=== PATIENT | female | born 1950 | race Caucasian/White ===

== ENCOUNTER → 2017-09-16 09:41 | Outpatient (CLI) | payer MEDICARE, OTHER, SELFPAY ==
--- NOTE | 2017-09-16 09:46 | MM_ITS ---
MM Dig screening mamm BI w/CAD CAD Screening ORDERING PHYSICIAN : Keara Patterson PATIENT AGE: 67 years GENDER: Female INDICATION: Routine screening mammogram. No hormones. No new complaints. Family history. Paternal grandmother with breast cancer postmenopausal COMPARISON . August 2015, December bilateral mammogram \ TECHNIQUE: Standard CC and MLO images were obtained. R2 CAD reviewed. FINDINGS: Moderately dense breast with similar pattern to previous studies. No no new dominant mass nor suspicious calcification.. CAD computer review highlights no areas of concern. RIGHT BREAST:No new findings of concern Minor asymmetric elements retroareolar region appear similar and stable to prior studies likely reflecting some mild ductal prominence here. Is similar to studies dating back to 2012 &/2011 LEFT BREAST:No significant change. Stable breast patterns IMPRESSION: ......... Stable bilateral mammogram no significant new findings. Follow-up in one year recommended. Moderately dense breasts.. BI-RADS Category: 2 Benign Finding(s) RECOMMENDED FOLLOW-UP: 1YR - 1 YEAR FOLLOW-UP (A letter has been sent to the patient regarding results of the study.)
--- NOTE | 2017-09-16 09:46 | XR_ITS ---
XR DEXA axial skeleton HISTORY: ITS.REASON: POST MENOPAUSAL ORDERING PHYSICIAN: Keara Patterson PATIENT AGE: 67 years FINDINGS: The BMD measured at the Right or left femoral neck is BMD g/cm squared with a T score of T score. This is considered Osteopenic according to the World Health Organization criteria. Fracture risk is Moderate. Treatment is advised. The L1 L4 density has a T score of -0.9. There is severe lumbar scoliosis convex left IMPRESSION: Osteopenia with moderate fracture risk. Treatment recommended. Suggest follow-up exam September 2019
== END ==
PROVIDERS: Family Provider Family Medicine; PCP Nurse Practitioner Family; Visit Provider Nurse Practitioner Family
DX: Z78.0 Asymptomatic menopausal state (principal); Z12.31 Encounter for screening mammogram for malignant neoplasm of breast
CPT/HCPCS: 77067; 77080

== ENCOUNTER → 2017-11-08 12:25 | Outpatient (CLI) | payer MEDICARE, OTHER, SELFPAY ==
--- NOTE | 2017-11-08 12:26 | XR_ITS ---
XR foot wt bearing RT 3V HISTORY: ITS.REASON: pain ORDERING PHYSICIAN: Maria Teresa Oro DPM PATIENT AGE: 67 years COMPARISON: None FINDINGS: There is mild hallux valgus with first metatarsophalangeal angle of 23 degrees with mild osteoarthritic changes of the first metatarsophalangeal joint. There is mild hypertrophic changes of the distal aspect of the first metatarsal. There is a small calcific density along the dorsal aspect of the first metatarsal tarsal joint. IMPRESSION: Mild hallux valgus with bunion formation at the distal first metatarsal
--- NOTE | 2017-11-08 12:26 | XR_ITS ---
XR foot wt bearing LT 3V HISTORY: ITS.REASON: pain ORDERING PHYSICIAN: Maria Teresa Oro DPM PATIENT AGE: 67 years COMPARISON: None FINDINGS: No fracture or dislocation. No lytic or blastic change. There is normal mineralization.. The joint spaces are well-preserved. No significant degenerative/arthritic changes. No erosive changes evident. Mild hypertrophic changes are present along the dorsal aspect of the first metatarsophalangeal junction and at the distal aspect of the first metatarsal IMPRESSION: Mild degenerative change, no acute finding
== END ==
PROVIDERS: Visit Provider Podiatrist
DX: M20.10 Hallux valgus (acquired), unspecified foot (principal); B35.1 Tinea unguium
CPT/HCPCS: 73630; 87102; 87206; 87220

== ENCOUNTER → 2019-06-12 09:18 | Outpatient (POV) | payer MEDICARE, OTHER, SELFPAY | PROVIDERS: Visit Provider Dermatology | DX: Z00.00 Encounter for general adult medical examination without abnormal findings (principal) ==

== ENCOUNTER → 2019-12-18 11:29 | Outpatient (POV) | payer MEDICARE, OTHER, SELFPAY | PROVIDERS: PCP Nurse Practitioner Family; Visit Provider Dermatology | DX: Z00.00 Encounter for general adult medical examination without abnormal findings (principal) ==

== ENCOUNTER → 2020-01-11 08:01 | Outpatient (CLI) | payer MEDICARE, OTHER, SELFPAY ==
--- NOTE | 2020-01-11 08:03 | MM_ITS ---
PROCEDURE: MM DIG SCREENING MAMM BI W/CAD Referring Doctor: Keara Patterson Patient Age:69Y CLINICAL INDICATION: SCREENING. 69-year-old. No hormones. No new complaints Family history a paternal grandmother with breast cancer postmenopausal COMPARISON: MG DMSB DIGITAL MAMM-SCREEN BILATERAL from 11/16/2011 MG DMSB DIG MAMM-SCREEN FLORENTINO from 12/19/2012 MG SCBI MM Dig screening mamm BI w/CAD from 09/16/2017 TECHNIQUE: Standard CC and MLO images were obtained. R2 CAD reviewed. Bilateral digital breast tomosynthesis included. Additional axillary CC views both breast included FINDINGS: moderate density breast with fibroglandular elements most evident anteriorly. Mild heterogeneous fibroglandular pattern. No new suspicious or dominant mass in either breast, no new areas of concern either breast, no suspicious calcifications. CAD computer assisted review highlights no areas of concern either breast. Left breast but stable small round density deep medial left breast on CC views noted 5.4 mm diameter.. Is unchanged since previous studies from 2017 and 2012 and can be followed safely Bilateral follow-up 1 year recommended IMPRESSION: Stable bilateral mammogram with no new areas of concern Moderate breast density Bilateral follow-up 1 year recommended BI-RAD Category: 2 Benign Finding(s) FOLLOW-UP: 1YR 1 Year Follow-up (A letter has been sent to the patient regarding results of the study.) Dictated by: El Moura MD 01/11/2020 11:20 El Moura MD in [place] 01/11/2020 11:20
== END ==
PROVIDERS: PCP Nurse Practitioner Family; Visit Provider Nurse Practitioner Family
DX: Z12.31 Encounter for screening mammogram for malignant neoplasm of breast (principal)
CPT/HCPCS: 77063; 77067

== ENCOUNTER → 2020-08-05 12:47 | Outpatient (POV) | payer MEDICARE, OTHER, SELFPAY | PROVIDERS: Visit Provider Dermatology | DX: Z00.00 Encounter for general adult medical examination without abnormal findings (principal) ==

== ENCOUNTER → 2020-09-25 12:22 | Outpatient (CLI) | payer MEDICARE, OTHER, SELFPAY ==
--- NOTE | 2020-09-25 12:26 | CA_ITS ---
APPROVED REPORT Ship Boss: ANA Laterality: Bilateral Study Quality: Excellent Indications: Screening Doppler Spectral Velocity Analysis ECA (R) 90.80/13.70 cm/s ECA (L) 73.70/10.30 cm/s dICA (R) 102.80/40.30 cm/s dICA (L) 90.80/36.00 cm/s Marisel (R) 73.70/27.40 cm/s Marisel (L) 84.00/33.40 cm/s pICA (R) 71.10/24.80 cm/s pICA (L) 94.20/34.30 cm/s dCCA (R) 112.30/31.00 cm/s dCCA (L) 94.20/27.40 cm/s pCCA (R) 135.80/35.30 cm/s mCCA (L) 125.10/36.80 cm/s Vert (R) 42.80/12.90 cm/s Vert (L) 32.60/15.40 cm/s ICA/CCA 0.92 ICA/CCA 1.00 Findings Duplex evaluation demonstrates stenosis of the right proximal internal carotid artery <20% with PSV <140 cm/sec, EDV <100 cm/sec, and IC/CC Ratio <4.0.Duplex evaluation demonstrates stenosis of the left proximal internal carotid artery <20% with PSV <140 cm/sec, EDV <100 cm/sec, and IC/CC Ratio <4.0. Duplex evaluation demonstrates antegrade flow of the bilateral Vertebral Arteries. Cardiac arrytthmia present throoughout exam. Incidental Thyroid nodules noted bilaterally. Conclusion Duplex evaluation demonstrates stenosis of the right proximal internal carotid artery <20% with PSV <140 cm/sec, EDV <100 cm/sec, and IC/CC Ratio <4.0.Duplex evaluation demonstrates stenosis of the left proximal internal carotid artery <20% with PSV <140 cm/sec, EDV <100 cm/sec, and IC/CC Ratio <4.0. Duplex evaluation demonstrates antegrade flow of the bilateral Vertebral Arteries. Cardiac arrytthmia present throoughout exam. Incidental Thyroid nodules noted bilaterally. Electronically signed by : Nadir Farmer MD 09/25/2020 15:28:46
--- NOTE | 2020-09-25 12:54 | XR_ITS ---
PROCEDURE: XR DEXA AXIAL SKELETON CLINICAL HISTORY: OSTEOPENIA COMPARISON: CR DEXAAX XR DEXA axial skeleton from 09/16/2017 FINDINGS: The right hip BMD is 0.652 with a T-score of -1.8. The left hip BMD is 0.647 with a T-score of -2.4. The lumbar spine BMD is 0.941 with a T-score of -1.0. Previously the lowest bone density was in the left femoral neck with T-score of -2.2 IMPRESSION: This patient is considered osteopenic according to the World Health Organization criteria. Bone density is between 10 and 25 percent below young normal. Fracture risk is moderate. Treatment is advised. Based on these results a follow-up exam is recommended in 2 year. Dictated by: Nadir Farmer MD 09/26/2020 11:22 Nadir Farmre MD in [place] 09/26/2020 11:22
== END ==
PROVIDERS: PCP Nurse Practitioner Family; Visit Provider Nurse Practitioner Family
DX: Z13.6 Encounter for screening for cardiovascular disorders (principal); M85.89 Other specified disorders of bone density and structure, multiple sites; R09.89 Other specified symptoms and signs involving the circulatory and respiratory systems
CPT/HCPCS: 77080; 93880

== ENCOUNTER → 2020-10-20 12:38 | Outpatient (CLI) | payer MEDICARE, OTHER, SELFPAY ==
--- NOTE | 2020-10-20 12:40 | US_ITS ---
PROCEDURE: US THYROID CLINICAL INDICATION: THYROID NODULE Thyroid nodule seen on recent carotid ultrasound COMPARISON: US CA CAROTID DUPLEX BI from 09/25/2020 FINDINGS: There are several tiny cysts in the right thyroid lobe. In addition there is a 1.5 centimeter solid nodule in the inferior right thyroid lobe which appears to be taller than long measuring 1.5 centimeters x 1.2 centimeters. No discrete calcifications are seen within this nodule. There is also a 8 millimeter solid nodule in the right thyroid lobe. In the left thyroid lobe there are several tiny cysts and a 8 millimeter solid nodule as well as a 1 centimeter complex nodule in the mid thyroid lobe and minimally complex cyst in the low lower lobe measuring 5 millimeters. Thyroid isthmus region is normal. No abnormal vascularity. Right thyroid lobe measures 4.1 x 2 x 1.5 cm and the left thyroid lobe 4 x 1.3 x 1.3 cm. IMPRESSION: 1.5 centimeter solid nodule in the inferior right thyroid lobe consistent with a TIRADS 4 lesion for which ultrasound-guided fine needle aspiration is recommended. 8 millimeter solid nodule in the right thyroid lobe consistent with a TIRADS 3 lesion. A few tiny cysts in both lobes. 1 centimeter complex nodule in the left mid thyroid lobe with minimally complex 5 millimeter cyst in the left lower thyroid lobe. Dictated by: Kenji Moody 10/20/2020 14:53 Kenji Moody in [place] 10/20/2020 14:53
== END ==
PROVIDERS: PCP Nurse Practitioner Family; Visit Provider Nurse Practitioner Family
DX: E04.1 Nontoxic single thyroid nodule (principal)
CPT/HCPCS: 76536

== ENCOUNTER → 2020-11-06 15:16 | Outpatient (CLI) | payer MEDICARE, OTHER, SELFPAY ==
[2020-11-06 16:47] LABS: Free T4 (Free Thyroxine) 0.78 ng/dl (0.78-2.19)
[2020-11-06 17:00] LABS: Thyroid Stimulating Hormone 2.02 uIU/mL (0.465-4.68)
[2020-11-08 09:00] LABS: Thyroid Peroxidase Antibodies <9 IU/mL (0-34)
[2020-11-11 23:45] LABS: Calcitonin <2.0 pg/mL (0.0-5.0); Thyroid Stimulating Immunoglob <0.10 IU/L (0.00-0.55)
== END ==
PROVIDERS: Visit Provider Otolaryngology
DX: E04.1 Nontoxic single thyroid nodule (principal); E04.9 Nontoxic goiter, unspecified
CPT/HCPCS: 36415; 82308; 84439; 84443; 84445; 86376

== ENCOUNTER → 2020-11-19 09:38 | Outpatient (CLI) | payer MEDICARE, OTHER, SELFPAY ==
--- NOTE | 2020-11-19 09:39 | US_ITS ---
PROCEDURE: US FNA THYROID x2 CLINICAL INDICATION: Right thyroid nodule COMPARISON: US US THYROID from 10/20/2020 TECHNIQUE: Two right thyroid nodules were biopsied with ultrasound guidance. Time-out procedure performed. Following obtaining informed consent, using aseptic technique and local anesthesia with buffered lidocaine, fine-needle aspiration was performed of the the mid and lower thyroid nodules of interest using sonographic guidance. 3 passes were made into the nodule with a 21 gauge needle. Specimen was given to cytology. The patient tolerated the procedure well without evidence of immediate complications and left the ultrasound suite in stable condition. FINDINGS: Cytology of the mid thyroid nodule: Negative for malignancy. Cytology lower thyroid nodule: Negative for malignancy IMPRESSION: Uneventful ultrasound-guided FNA two right thyroid nodules both negative for malignancy. Dictated by: Nadir Farmer MD 11/22/2020 10:57 Nadir Farmer MD in [place] 11/22/2020 10:57
== END ==
PROVIDERS: PCP Nurse Practitioner Family; Visit Provider Otolaryngology
DX: E04.9 Nontoxic goiter, unspecified (principal)
CPT/HCPCS: 10005; 76536; 88173

== ENCOUNTER 2020-11-22 10:18 | Emergency (ER) | payer MEDICARE, OTHER, SELFPAY ==
[2020-11-22 10:39] VITALS: BP 136/76; PULSE 87; RESP 20; TEMP 36.9; O2SAT 98; BMI 22.3
--- NOTE | 2020-11-22 10:47 | HMH.EDUTC ---
[facility] [place]ression: Contact dermatitis Qualifiers: Contact dermatitis type: allergic Contact dermatitis trigger: other trigger Qualified Code(s): L23.89 - Allergic contact dermatitis due to other agents Disposition: Home, Self-Care Condition on Discharge: Good Instructions: DI for Contact Dermatitis Additional Instructions: apply cream if symptoms worsen return or be seen in ed follow up with dr huerta do not scratch Prescriptions: Triamcinolone Acetonide 15 gm TP BID 5 Days #1 cream..g. Transmission Status: Pending to [id number] Referrals: Keara Patterson APRN [Primary Care Provider] - Time of Disposition: 11:02 Medical Decision Making - Dixon Inquiry Pt receiving controlled substance: No Vital Signs: 11/22/20 10:39 Temperature 98.5 F Temperature Source Oral Pulse Rate [Left] 87 Respiratory Rate 20 Blood Pressure [Right Arm] 136/76 Blood Pressure Mean [Right Arm] 96 02 Sat by Pulse Oximetry 98 [facility] [place] - General Chief complaint: [facility] Stated complaint: rash on neck Time Seen by Provider: 11/22/20 10:48 Mode of Arrival: Ambulatory Source of Information: Patient Limitations: No Limitations Description of Symptoms (Recalled from Triage Doc. by RN): pt c/o a rash on the front of her neck. she had a biopsy done and the area of the rash is only where they cleaned her for the procedure. HEENT Symptoms (Recalled from RN notes): No Resp Symptoms (Recalled from RN notes): No Skin Symptoms (Recalled from RN notes): Yes (rash on throat) MS Symptoms (Recalled from RN notes): No Functional Status (Recalled from RN notes): na - History of Present Illness Provider Complaint: 70 yr old presents for rash on neck. pt c/o a rash on the front of her neck. she had a biopsy done on and the area of the rash is only where they cleaned her for the procedure. - Related Data Home Medications Medication Instructions Recorded Confirmed Calcium Carbonate/Vitamin D3 1 each PO BID 11/18/17 11/06/20 [Calcium 600 + Vit D 400 Softgl] psyllium seed (sugar) oral powder 1 tbsp PO DAILY 04/11/18 11/06/20 ibandronate 150 mg tablet 150 mg PO tab 11/06/20 11/06/20 Previous Rx's Medication Instructions Recorded Triamcinolone Acetonide 15 gm TP BID 5 Days #1 cream..g. 11/22/20 Allergies Allergy/AdvReac Type Severity Reaction Status Date / Time penicillamine Allergy Unknown Verified 11/06/20 14:59 - Worker's Comp Is this a Worker's Comp case?: No [facility] History - Hepatitis A Screen Drug use history?: No High risk sexual behaviors?: No History of sexually transmitted infection?: No Currently employed?: No Childcare worker?: No Do you have indoor plumbing?: Yes Do you have electricity?: Yes Attestation statement:: This patient has been screened for Hepatitis A risk factors. I have reviewed the patient's past medical history: Yes Medical History: Denies:: Diabetes Mellitus Type 1, Diabetes Mellitus Type 2, Internal Pacemaker, Lung Disease, Seizures Other Medical History: Reports: Other Comment: Chicken Pox, osteoporosis Other Surgeries: Yes: Colonoscopy, Dilation and Curettage, Other. No: Pacemaker Amputation: No Fractures: No Comment: Cyst removed from right ovary 1982. lesion removed from right hand. - Social History Smoking Status: Never smoker Alcohol Intake: never Alcohol Intake Frequency:: other Occupational Status: retired Family Hx:: Cancer Comment: cyst removed from right ovary ROS Obtained: Yes Systems reviewed as appropriate & no additional complaints - Constitutional Constitutional: Reports system reviewed and no additional complaints, except as docu, Denies fever(s) - Eyes Eyes: Reports system reviewed and no additional complaints, except as docu, Denies itchy eyes - ENT Ears, Nose, Mouth, and Throat: Reports system reviewed and no additional complaints, except as docu, Denies bleeding gums - Cardiovascular Cardiovascula
[2020-11-22 11:28] VITALS: BP 130/74; PULSE 84; RESP 20; TEMP 36.9
== END 2020-11-22 11:28 | disposition home or self-care (01) ==
PROVIDERS: Emergency Provider Nurse Practitioner Family; PCP Nurse Practitioner Family
DX: L23.89 Allergic contact dermatitis due to other agents (principal)
CPT/HCPCS: G0463; 99202

== ENCOUNTER → 2021-01-20 11:05 | Outpatient (POV) | payer MEDICARE, OTHER, SELFPAY | PROVIDERS: Visit Provider Dermatology | DX: Z00.00 Encounter for general adult medical examination without abnormal findings (principal) ==

== ENCOUNTER → 2021-01-22 15:39 | Outpatient (CLI) | payer MEDICARE, OTHER, SELFPAY ==
--- NOTE | 2021-01-22 15:42 | MM_ITS ---
PROCEDURE: MM DIG SCREENING MAMM BI W/CAD Digital Breast Tomosynthesis Included CLINICAL INDICATION: SCREENING COMPARISON: MG DMSB DIG MAMM-SCREEN [place] from 12/19/2012 MG SCBI MM Dig screening mamm BI w/CAD from 09/16/2017 MG MM DIG SCREENING MAMM BI W/CAD from 01/11/2020 TECHNIQUE: Standard CC and MLO images and 3D Tomosynthesis was obtained. R2 CAD reviewed. FINDINGS: The breasts are heterogeneously dense which may obscure small masses.. Asymmetric density consistent with fibroglandular tissue is present in the retroareolar region. This is unchanged. In the right breast there is a nodular 4 mm density in the inferior aspect of the right breast and 1 in the posterior inferior aspect of the right breast at 4 mm. In the left breast a 5 mm nodular opacity is present inferiorly as well as a nodular opacity in the superior left breast at 6 mm and 1 in the deep retroareolar region at 6 mm. Recommend spot compression views and bilateral breast ultrasound. These are not well delineated on the CC views. IMPRESSION: New bilateral nodular opacities. Suggest spot compression views rolled views and straight mL along with bilateral breast ultrasound BI-RAD Category: 0 Need Additional Imaging Evaluation FOLLOW-UP: IMM Immediate Follow-up Recommended (A letter has been sent to the patient regarding results of the study.) Dictated by: Nadir Farmer MD 02/09/2021 11:14 Nadir Farmer MD in [place] 02/09/2021 11:14
== END ==
PROVIDERS: PCP Nurse Practitioner Family; Visit Provider Nurse Practitioner Family
DX: Z12.31 Encounter for screening mammogram for malignant neoplasm of breast (principal)
CPT/HCPCS: 77063; 77067

== ENCOUNTER → 2021-02-17 08:50 | Outpatient (POV) | payer MEDICARE, OTHER, SELFPAY | PROVIDERS: Visit Provider Internal Medicine Nephrology | DX: Z00.00 Encounter for general adult medical examination without abnormal findings (principal) ==

== ENCOUNTER → 2021-02-27 13:39 | Outpatient (CLI) | payer MEDICARE, OTHER, SELFPAY ==
--- NOTE | 2021-02-27 13:41 | US_ITS ---
PROCEDURE: MM DIG MAMM BI DX W/CAD Digital Breast Tomosynthesis Included The CLINICAL INDICATION: ABN MAMM COMPARISON: MG SCBI MM Dig screening mamm BI w/CAD from 09/16/2017 MG MM DIG SCREENING MAMM BI W/CAD from 01/11/2020 MG MM DIG SCREENING MAMM BI W/CAD from 01/22/2021 US US BREAST LT COMPLETE from 02/27/2021 US US BREAST RT COMPLETE from 02/27/2021 TECHNIQUE: Standard CC and MLO images and 3D Tomosynthesis was obtained. R2 CAD reviewed. FINDINGS: Right breast: The small focal opacity in the inferior right breast appears to compress out as fibroglandular tissue.. Rolled views do not confirm persistent nodule. Right breast ultrasound: At 6 o'clock the nipple there is a 10 x 3 mm hypoechoic nodule somewhat irregular margins suggesting a complicated cyst or dilated duct. At 11 o'clock near the nipple there is an additional hypoechoic nodule may represent asymmetric fibroglandular tissue. Left breast: 2 nodules are present in the inferior medial aspect of the left breast measuring 4 and 3 mm. These do contain some coarse calcifications. No suspicious nodules evident. Left breast ultrasound: 5 mm cyst 9 o'clock near the nipple. No suspicious nodules evident. IMPRESSION: The probably benign findings. No convincing evidence of malignancy. Recommend bilateral 6 month mammographic and sonographic follow-up. BI-RAD Category: 3 Probably Benign Finding Short Term Follow-Up FOLLOW-UP: 6M 6 Month Follow-up (A letter has been sent to the patient regarding results of the study.) Dictated by: Nadir Farmer MD 02/27/2021 18:57 Nadir Farmer MD in [place] 02/27/2021 18:57
== END ==
PROVIDERS: PCP Nurse Practitioner Family; Visit Provider Nurse Practitioner Family
DX: R92.8 Other abnormal and inconclusive findings on diagnostic imaging of breast (principal)
CPT/HCPCS: 76641; 77062; 77066; G0279

== ENCOUNTER → 2021-07-21 08:58 | Outpatient (POV) | payer MEDICARE, OTHER, SELFPAY | PROVIDERS: Visit Provider Dermatology | DX: Z00.00 Encounter for general adult medical examination without abnormal findings (principal) ==

== ENCOUNTER → 2021-10-01 13:13 | Outpatient (CLI) | payer MEDICARE, OTHER, SELFPAY ==
--- NOTE | 2021-10-01 13:17 | MM_ITS ---
PROCEDURE INFORMATION: Exam: US Right Breast, Complete US Left Breast, Complete MG Bilateral Diagnostic Breast Tomosynthesis Exam date and time: 10/01/2021 1:48 PM Age: 71 years old Clinical indication: Short-term sonographic follow-up for bilateral breast masses TECHNIQUE: Imaging protocol: Complete ultrasound of all four quadrants of the Right breast and the retroareolar regions, including ultrasound of the axilla when performed. Complete ultrasound of all four quadrants of the Left breast and the retroareolar regions, including ultrasound of the axilla when performed. Bilateral Diagnostic tomosynthesis and 2D mammography including computer-aided detection (CAD) when performed. Unilateral or bilateral exam. COMPARISON: 1. MG MM DIG MAMM BI DX W/CAD 02/27/2021 1:51 PM 2. MG MM DIG SCREENING MAMM BI W/CAD 01/22/2021 3:41 PM FINDINGS: MAMMOGRAPHY: The breast tissue is composed of scattered areas of fibroglandular density. There is no stellate mass, architectural distortion or suspicious microcalcifications in either breast to suggest malignancy. No skin thickening or axillary adenopathy. ULTRASOUND: Sonographic images of both breasts including the retroareolar regions, all 4 quadrants and the axilla demonstrates minimal subcentimeter cystic change in the left breast. Two previously noted lower inner quadrant indeterminate subcentimeter masses on prior left breast ultrasound are not reproducible on the current examination. In the right 6 o'clock axis 3 cm from the nipple is a stable focus of hypoechogenic tissue measuring 0.9 x 0.5 cm. Focal fat lobule or discrete solid mass in the right 11 o'clock axis 3 cm from the nipple is also stable finding measuring 0.8 x 0.7 x 0.2 cm. . No architectural distortion or acoustical shadowing. No skin thickening or axillary adenopathy. IMPRESSION: 1. Stable sonographically visible right breast masses compared to prior ultrasound dated 02/27/2021. A six-month follow-up targeted right breast ultrasound is recommended for continued close surveillance. Benign cystic change in the left breast. 2. Bilateral annual mammographic screening is recommended at the time of right breast follow-up in February 2021. ASSESSMENT: BI-RADS Category 3: Probably benign
== END ==
PROVIDERS: PCP Nurse Practitioner Family; Visit Provider Nurse Practitioner Family
DX: R92.8 Other abnormal and inconclusive findings on diagnostic imaging of breast (principal)
CPT/HCPCS: 76641; 77062; 77066; G0279

== ENCOUNTER 2021-10-21 10:53 | Emergency (ER) | payer MEDICARE, OTHER, SELFPAY ==
[2021-10-21 11:10] VITALS: BP 121/84; PULSE 83; RESP 17; TEMP 36.9; O2SAT 97; BMI 23.5
--- NOTE | 2021-10-21 11:38 | HMH.EDUTC ---
[facility] [place] Clinical Impression: Dermatitis Disposition: Home, Self-Care Condition on Discharge: Good Instructions: Summertime Rashes: Poison Nadine, Marston, and [place], Poison Nadine, Poison Marston, Poison [place], DI for Poison Nadine Allergy, Prednisone Additional Instructions: Over the counter Calamine lotion may help with itching and rash Oatmeal bathes may help to soothe the skin and help with itching and irritation of the rash Over the counter Benadryl may help with itching Return if needed Start over the counter Prednisone tomorrow Return if needed Straight to ER if any life threatening symptoms Follow up with your Family Doctor if needed Prescriptions: predniSONE [Prednisone 5mg Tab Dose-Pack] 5 mg PO UD DOSE PK 6 Days #21 tab Transmission Status: Pending to [id number] Referrals: Keara Patterson APRN [Primary Care Provider] - As needed Time of Disposition: 12:05 Medical Decision Making - Dixon Inquiry Pt receiving controlled substance: No Dixon was queried for this patient: No Vital Signs: 10/21/21 11:10 10/21/21 11:54 Temperature 98.4 F 98.4 F Temperature Source Oral Pulse Rate 83 Pulse Rate [Right Brachial] 83 Respiratory Rate 17 17 Blood Pressure 121/84 Blood Pressure [Right Arm] 121/84 Blood Pressure Mean [Right Arm] 96 Blood Pressure Source [Right Arm] Automatic Cuff Blood Pressure Position [Right Arm] Sitting 02 Sat by Pulse Oximetry 97 Oxygen Delivery Method Room Air Orders (Tests/Meds): ED MEDICATIONS Discontinued Medications Generic Name Dose Route Start Last Admin Trade Name Freq PRN Reason Stop Dose Admin Methylprednisolone Sodium Succinate 125 mg 10/21/21 11:45 10/21/21 11:50 Methylprednisolone Sod Succ 125mg Vial IM 10/21/21 11:46 125 mg ONCE ONE Administration [facility] [place] - General Stated complaint: rash Time Seen by Provider: 10/21/21 11:44 Mode of Arrival: Ambulatory Source of Information: Patient Limitations: No Limitations Description of Symptoms (Recalled from Triage Doc. by RN): PATIENT C/O RASH TO FACE, ARMS AND HANDS SINCE TUESDAY HEENT Symptoms (Recalled from RN notes): No Resp Symptoms (Recalled from RN notes): No Skin Symptoms (Recalled from RN notes): Yes MS Symptoms (Recalled from RN notes): No Functional Status (Recalled from RN notes): WNL - History of Present Illness Provider Complaint: Patient statse that they was moving weeds and a small tree that they cut down on Tuesday and not sure if she may have got into poison nadine or be having a reaction to the tree but she is broke out in blister like rash on both forearms and on her neck and chin States that today it was itching worse and seemed to be spreading so she came in - Related Data Home Medications Medication Instructions Recorded Confirmed Calcium Carbonate/Vitamin D3 1 each PO BID 11/18/17 06/25/21 [Calcium 600 + Vit D 400 Softgl] psyllium seed (sugar) oral powder 1 tbsp PO DAILY 04/11/18 06/25/21 ibandronate 150 mg tablet 150 mg PO tab 11/06/20 06/25/21 Previous Rx's Medication Instructions Recorded Triamcinolone Acetonide 15 gm TP BID 5 Days #1 cream..g. 11/22/20 predniSONE [Prednisone 5mg Tab 5 mg PO UD DOSE PK 6 Days #21 tab 10/21/21 Dose-Pack] Allergies Allergy/AdvReac Type Severity Reaction Status Date / Time penicillamine Allergy Unknown Verified 06/25/21 13:14 - Worker's Comp Is this a Worker's Comp case?: No [facility] History - Hepatitis A Screen Attestation statement:: This patient has been screened for Hepatitis A risk factors. I have reviewed the patient's past medical history: Yes Medical History: Denies:: Diabetes Mellitus Type 1, Diabetes Mellitus Type 2, Internal Pacemaker, Lung Disease, Seizures Other Medical History: Reports: Other Comment: Chicken Pox, osteoporosis Other Surgeries: Yes: Colonoscopy, Dilation and Curettage, Other. No: Pacemaker Amputation: No Fractures: No Comment: Cyst removed from right ovary 1982
[2021-10-21 11:54] VITALS: BP 121/84; PULSE 83; RESP 17; TEMP 36.9; O2SAT 97
== END 2021-10-21 12:08 | disposition home or self-care (01) ==
PROVIDERS: Emergency Provider Nurse Practitioner; PCP Nurse Practitioner Family
DX: L25.9 Unspecified contact dermatitis, unspecified cause (principal)
CPT/HCPCS: 96372; 99212; G0463

== ENCOUNTER → 2021-12-01 13:53 | Outpatient (CLI) | payer MEDICARE, OTHER, SELFPAY ==
--- NOTE | 2021-12-01 14:13 | US_ITS ---
FINAL REPORT TECHNIQUE: Sonographic images of the thyroid gland were obtained in the longitudinal and transverse planes. CLINICAL HISTORY: hx nodule COMPARISON: 10/20/2020 FINDINGS: The right lobe measures 1.5 x 3.9 x 1.9 cm. The left lobe measures 1.5 x 3.9 x 1.5 cm. The isthmus is normal. There are multiple right thyroid nodules. There is an isoechoic nodule in the posterior right thyroid lobe measuring 1.5 cm, was 1.4 cm. This is unchanged since the previous. There is a 2nd isoechoic nodule measuring 8 mm, also unchanged. There is a 3rd nodule in the lower pole of the right thyroid measure 1.1 cm, unchanged. Several tiny colloid cysts are identified. The left lobe of the thyroid demonstrates multiple nodules and colloid cysts. In the upper pole of the left thyroid lobe is a hypoechoic nodule measuring 6 mm, stable. There is also an 8 mm isoechoic nodule which may have been partially cystic on the prior exam. In addition, there is a stable 8 mm nodule in the lower pole. IMPRESSION: Stable right thyroid lobe nodules. One of the left thyroid nodules appears less cystic and more solid than previous but measures less than 1 cm. No current recommendations regarding follow-up, favor multinodular goiter. Reviewed, Interpreted and Dictated by Danni Ramírez MD Transcribed by Amy Rutledge Authenticated and [facility]
[2021-12-01 15:24] LABS: Thyroid Stimulating Hormone 1.95 uIU/mL (0.465-4.68)
== END ==
PROVIDERS: PCP Nurse Practitioner Family; Visit Provider Otolaryngology
DX: E04.1 Nontoxic single thyroid nodule (principal)
CPT/HCPCS: 36415; 76536; 84443

== ENCOUNTER → 2022-01-26 13:12 | Outpatient (POV) | payer MEDICARE, OTHER, SELFPAY | PROVIDERS: Visit Provider Dermatology | DX: Z00.00 Encounter for general adult medical examination without abnormal findings (principal) ==

== ENCOUNTER → 2022-02-13 10:28 | Outpatient (CLI) | payer MEDICARE, OTHER, SELFPAY | PROVIDERS: PCP Nurse Practitioner Family; Visit Provider Ophthalmology | DX: U07.1 COVID-19 (principal) | CPT/HCPCS: C9803; U0003; U0005 ==

== ENCOUNTER 2022-03-16 08:49 | Day surgery (SDC) | payer MEDICARE, OTHER, SELFPAY ==
[2022-03-16] VITALS (7 sets, daily range): BP systolic 115–146; BP diastolic 63–76; PULSE 68–73; RESP 16–18; TEMP 36.2–37.1; O2SAT 98–100; BMI 23.1
== END 2022-03-16 11:01 | disposition home or self-care (01) ==
LOC: OR 08:50
PROVIDERS: PCP Nurse Practitioner Family; Visit Provider Ophthalmology
DX: H25.811 Combined forms of age-related cataract, right eye (principal)
CPT/HCPCS: 66984; V2632

== ENCOUNTER 2022-03-30 08:24 | Day surgery (SDC) | payer MEDICARE, OTHER, SELFPAY ==
[2022-03-26 11:39] VITALS: BMI 23.0
[2022-03-30] VITALS (7 sets, daily range): BP systolic 113–123; BP diastolic 54–69; PULSE 63–76; RESP 16–18; TEMP 36.4–36.6; O2SAT 99–100
== END 2022-03-30 10:58 | disposition home or self-care (01) ==
PROVIDERS: PCP Nurse Practitioner Family; Visit Provider Ophthalmology
DX: H25.812 Combined forms of age-related cataract, left eye (principal)
CPT/HCPCS: 66984; V2632

== ENCOUNTER → 2022-04-13 10:52 | Outpatient (POV) | payer MEDICARE, OTHER, SELFPAY | PROVIDERS: Visit Provider Dermatology | DX: Z00.00 Encounter for general adult medical examination without abnormal findings (principal) ==

== ENCOUNTER → 2022-05-07 13:36 | Outpatient (CLI) | payer MEDICARE, OTHER, SELFPAY ==
--- NOTE | 2022-05-07 14:15 | MM_ITS ---
PROCEDURE INFORMATION: Exam: US Left Breast, Complete US Right Breast, Complete MG Bilateral Diagnostic Breast Tomosynthesis Exam date and time: 05/07/2022 3:09 PM Age: 71 years old Clinical indication: Six month follow-up right sonographic breast masses in 02/27/2021 and 10/01/2021. Screening. No reported family history of breast cancer. TECHNIQUE: Imaging protocol: Complete ultrasound of all four quadrants of the Left breast and the retroareolar regions, including ultrasound of the axilla when performed. Complete ultrasound of all four quadrants of the Right breast and the retroareolar regions, including ultrasound of the axilla when performed. Bilateral Diagnostic tomosynthesis and 2D mammography including computer-aided detection (CAD) when performed. Unilateral or bilateral exam. COMPARISON: US BREAST LT COMPLETE 10/01/2021 2:40 PM FINDINGS: MAMMOGRAPHY: Breast composition: There are scattered areas of fibroglandular density. Mass: No suspicious mass. Architectural distortion: None. Calcifications: No suspicious calcifications. Asymmetric density: None. Skin thickening: None. Axillary adenopathy: None. ULTRASOUND: Bilateral sonography, all 4 quadrants, retroareolar and axilla. On the right, at 6 o'clock 3 cm from the nipple, probable complicated cyst measuring 0.4 by 0.9 x 0.3 cm which measured 1.0 x 0.3 x 0.7 cm on 02/27/2021; and at 11 o'clock 3 cm from the nipple, oval hypoechoic mass or island of tissue measuring 0.8 by 0.9 x 0.2 cm which measured 0.8 x 0.3 by 0.6 cm on 02/27/2021. Sonographically unremarkable right axillary lymph node. On the left, at 6 o'clock 2 cm from the nipple, probable complicated cyst measuring 0.4 x 0.2 by 0.4 cm which measured 0.3 x 0.3 by 0.3 cm on 10/01/2021, not demonstrated 02/27/2021. Sonographically unremarkable left axillary lymph node. IMPRESSION: Probably benign cystic changes on the right at 6 and 11 o'clock and on the left 6 o'clock, suggest six-month targeted sonography unless otherwise clinically indicated. No mammographic evidence of malignancy. ASSESSMENT: BI-RADS Category 3: Probably benign
== END ==
PROVIDERS: PCP Nurse Practitioner Family; Visit Provider Nurse Practitioner Family
DX: R92.8 Other abnormal and inconclusive findings on diagnostic imaging of breast (principal)
CPT/HCPCS: 76641; 77062; 77066; G0279

== ENCOUNTER → 2022-10-12 12:44 | Outpatient (CLI) | payer MEDICARE, OTHER, SELFPAY ==
--- NOTE | 2022-10-12 12:50 | US_ITS ---
FINAL REPORT CLINICAL HISTORY: thyroid nodule COMPARISON: October 2020 FINDINGS: THYROID ULTRASOUND Thyroid gland is normal size. The parenchyma shows normal echogenicity. Multiple thyroid nodules. A posterior right thyroid nodule measures up to 16 mm and previously measured 15 mm. There are some punctate calcifications associated with this nodule. There is an isoechoic right thyroid nodule measuring up to 12 mm that previously measured 11 mm. There are multiple subcentimeter left thyroid nodules. There is an exophytic isoechoic left thyroid nodule measuring up to 21 mm that was done on the prior exam. Overall the left lobe nodules appear more numerous than on the prior exam. IMPRESSION: Multinodular goiter with mild progression compatible with TI-RADS 4. Recommend continued 12-month follow-up. Reviewed, Interpreted and Dictated by Sharla Mejias MD Transcribed by Rachid Cotter Authenticated and [facility]
== END ==
PROVIDERS: PCP Nurse Practitioner Family; Visit Provider Otolaryngology
DX: E04.1 Nontoxic single thyroid nodule (principal)
CPT/HCPCS: 76536

== ENCOUNTER → 2022-10-26 08:59 | Outpatient (CLI) | payer MEDICARE, OTHER, SELFPAY ==
--- NOTE | 2022-10-26 09:07 | XR_ITS ---
FINAL REPORT TECHNIQUE: Bone densitometry calculations of the lumbar spine and left hip were obtained. CLINICAL HISTORY: osteopenia FINDINGS: Using L1-4, the bone mineral density of the spine is 0.985 g/cm2, corresponding to T-score of -0.6 but this may be falsely elevated secondary to hypertrophic changes. Using the left hip, the bone mineral density of the femoral neck is 0.605 g/cm2, corresponding to a T-score of -2.2. Using the right hip, the bone mineral density of the femoral neck is 0.686 g/cm2, corresponding to a T-score of -1.6. NOTE: T-score: Standard deviation compared with peak bone mass of young adult mean. *Following the recommendations of the International Society of Bone densitometry, classification of hip BMD is based on the lower of two T-scores; total hip or femoral neck. IMPRESSION: Diminished bone mineral density of the hips consistent with osteopenia. Normal bone mineral density of the lumbar spine but this may be falsely elevated secondary to hypertrophic changes. FRAX data reports major osteoporotic fracture of 12% and hip fracture of 2.6%. Reviewed, Interpreted and Dictated by Curtis Iglesias MD Transcribed by Amy Rutledge Authenticated and [facility]
== END ==
PROVIDERS: PCP Nurse Practitioner Family; Visit Provider Nurse Practitioner Family
DX: M85.89 Other specified disorders of bone density and structure, multiple sites (principal)
CPT/HCPCS: 77080

== ENCOUNTER → 2022-11-12 13:45 | Outpatient (CLI) | payer MEDICARE, OTHER, SELFPAY ==
--- NOTE | 2022-11-12 13:50 | US_ITS ---
PROCEDURE INFORMATION: Exam: US Right Breast, Complete US Left Breast, Complete Exam date and time: 11/12/2022 2:16 PM Age: 72 years old Clinical indication: Short-term radiographic follow-up for probable cystic change TECHNIQUE: Imaging protocol: Complete ultrasound of all four quadrants of the right breast and the retroareolar regions, including ultrasound of the axilla when performed. Complete ultrasound of all four quadrants of the left breast and the retroareolar regions, including ultrasound of the axilla when performed. COMPARISON: US BREAST RT COMPLETE 05/07/2022 2:45 PM FINDINGS: Breast: Sonographic images of both breasts including the retroareolar regions, all 4 quadrants and the axilla do not demonstrate any solid masses. Minimal subcentimeter cystic change is present bilaterally. No architectural distortion or acoustical shadowing. No skin thickening or axillary adenopathy. IMPRESSION: No sonographic evidence of malignancy. Annual screening is recommended in April 2023 unless otherwise clinically indicated. ASSESSMENT: BI-RADS Category 2: Benign
== END ==
LOC: RAD 13:46
PROVIDERS: PCP Nurse Practitioner Family; Visit Provider Nurse Practitioner Family
DX: R92.8 Other abnormal and inconclusive findings on diagnostic imaging of breast (principal); N60.01 Solitary cyst of right breast; N60.02 Solitary cyst of left breast
CPT/HCPCS: 76641

== ENCOUNTER 2023-01-06 10:10 | Day surgery (SDC) | payer MEDICARE, OTHER, SELFPAY ==
[2022-12-16 11:42] VITALS: BMI 22.6
[2023-01-06 10:29] VITALS: BP 140/64; PULSE 88; RESP 18; TEMP 36.5; O2SAT 98
--- NOTE | 2023-01-06 10:43 | EXP.ANES.CKL ---
[facility] Disclaimer: The information contained in this section may have been updated after the patient was seen, as this information can be updated by other users. Medical History Anxiety Depression H/O thyroid nodule History of cataract History of COVID-19 Thyroid Nodule Surgical History History of cataract surgery History of surgery GROWTH REMOVED ON RIGHT HAND AND LEFT SHOULDER Hx of dilation and curettage Hx of sinus surgery Family History Grandmother Breast cancer Mother Cancer Father Family history of cardiomyopathy Social History Smoking Status: Never smoker alcohol intake: never substance use type: denies use current occupational status: retired Travel in the last 8 weeks: None household members: none housing: house lives independently: No marital status: single education level: college service: No mcfp: No caffeine: Yes do you feel safe at home: Yes victim of physical abuse: No victim of emotional abuse: No victim of sexual abuse: No would you like helpful sources: No [facility] Anesthesia Checklist Patient Identification Patient Identification: Arm Band and Verbal (Name & ) Structural Data Admitted From: Home Planned Operative Procedure/s: colonoscopy Consent for Planned Operative Procedure(s) Verified: Yes Verified Documents: Surgical Consent NPO Status Verified Time NPO: 00:00 Additional verifications Anesthesia Reactions: No Previous Colonoscopy: Yes Airway Assessment Mallampati Score:: Class I C-Spine Mobility Assessed: Yes TMJ Mobility Assessed: Yes Dentition: Good Dentition Neurological Assessment Level of Consciousness: Awake and Alert Hx Seizures: No Anesthesia Plan Anesthesia Risk discussed: Yes ASA Class: I Anesthesia Type: IV sedation
[2023-01-06 11:00] VITALS: O2SAT 98
--- NOTE | 2023-01-06 11:24 | HMH.SCOPE ---
Procedure: Date: 01/06/23 Patient Date of :: 1950 Procedure Performed:: screening colonoscopy Indications:: Personal history of polyps Performing Provider:: Ayesha Hugo MD Referring Provider:: Keara Burton APRN Sedation:: Propofol Procedure:: After placing the patient in the left lateral decubitus position, the colonoscopy was gently inserted into the rectum and under direct visualization advanced to the cecum which was identified by transillumination in the right lower quadrant, identification of the ileocecal valve, appendiceal orifice, and cecal strap. Color, texture, mucosa, and anatomy of the colon were carefully examined with the scope. Findings:: Anal canal: normal Rectum: normal Sigmoid colon: normal without polyps or inflammatory changes, scattered diverticulosis noted Descending colon: normal without polyps or inflammatory changes Splenic flexure: normal Transverse colon: normal without polyps or inflammatory changes Hepatic flexure: normal Ascending colon: normal without polyps or inflammatory changes Cecum: normal Terminal ileum: not visualized Impression: Sigmoid diverticulosis otherwise normal colonoscopy Recommendations:: Follow up examination in about FIVE years or so, sooner if clinically indicated in view of history of polyps. Complications:: None Estimated blood obtained (mL): 0 Colonoscopy Component Colonoscopy Component Was a colonoscopy performed during today's procedure?: Yes Recommended follow up colonoscopy of at least 10 years?: No If no, follow up colonoscopy recommended in ___ years?: FIVE Reason for not recommending >/= 10 yr follow-up interval?: As noted above in report
[2023-01-06 11:25] VITALS: BP 104/54; PULSE 70; RESP 15; TEMP 36.8; O2SAT 99
[2023-01-06 11:35] VITALS: BP 116/61; PULSE 71; RESP 17; O2SAT 99
[2023-01-06 11:45] VITALS: BP 116/61; PULSE 67; RESP 16; O2SAT 99
[2023-01-06 11:55] VITALS: BP 126/73; PULSE 80; RESP 17; O2SAT 100
== END 2023-01-06 12:05 | disposition home or self-care (01) ==
PROVIDERS: PCP Nurse Practitioner Family; Visit Provider Internal Medicine Gastroenterology
PROC: 0DJD8ZZ Inspection of Lower Intestinal Tract, Via Natural or Artificial Opening Endoscopic (ICD-10-PCS; CPT 45378; principal; 2023-01-06 11:30)
DX: Z12.11 Encounter for screening for malignant neoplasm of colon (principal); Z86.010 Personal history of colon polyps; K57.30 Diverticulosis of large intestine without perforation or abscess without bleeding
CPT/HCPCS: G0105

== ENCOUNTER → 2023-04-04 13:02 | Outpatient (CLI) | payer MEDICARE, OTHER, SELFPAY ==
--- NOTE | 2023-04-04 13:02 | US_ITS ---
FINAL REPORT CLINICAL HISTORY: Decreased Pulses bilaterally. COMPARISON: None FINDINGS: LOWER EXTREMITY SEGMENTAL PRESSURE MEASUREMENTS FINDINGS: Pressure indices are as follows: RIGHT LOWER EXTREMITY: Thigh: 1.06 Calf: 1.10 Ankle, posterior tibial artery: 1.14 Ankle, dorsalis pedis: 1.10 Toe: 0.79 Comments: Normal LEFT LOWER EXTREMITY: Thigh: 1.06 Calf: 1.04 Ankle, posterior tibial artery: 1.02 Ankle, dorsalis pedis: 0.93 Toe: 0.70 Comments: Normal IMPRESSION: Normal segmental pressures. Reviewed, Interpreted and Dictated by Sharla Mejias MD Transcribed by Adela Ruffin Authenticated and [facility]
== END ==
PROVIDERS: PCP Nurse Practitioner Family; Visit Provider Nurse Practitioner Family
DX: R09.89 Other specified symptoms and signs involving the circulatory and respiratory systems (principal)
CPT/HCPCS: 93923

== ENCOUNTER → 2023-05-05 12:32 | Outpatient (CLI) | payer MEDICARE, OTHER, SELFPAY ==
--- NOTE | 2023-05-05 12:46 | US_ITS ---
FINAL REPORT TECHNIQUE: Real-time grayscale and color ultrasound of the thyroid was performed. CLINICAL HISTORY: hx nodule COMPARISON: 10/12/2022 FINDINGS: The thyroid gland measures 43 mm on the right and 46 mm on the left. Nodules: There are multiple nodules again seen in both lobes of the thyroid. Dominant focus in the right lobe measures 1.5 x 1.0 cm, TR 4, and similar to the prior study. Dominant focus on the left measures 2.4 x 1.5 cm, TR 4, and larger than on the previous study. IMPRESSION: Multiple bilateral thyroid nodules as above. Recommend needle sampling of the dominant bilateral TR 4 nodules. Reviewed, Interpreted and Dictated by Curtis Iglesias MD Transcribed by Adela Ruffin Authenticated and [facility]
[2023-05-05 13:52] LABS: Free T4 (Free Thyroxine) 0.88 ng/dl (0.78-2.19)
[2023-05-05 14:04] LABS: Thyroid Stimulating Hormone 2.05 uIU/mL (0.465-4.68)
== END ==
LOC: RAD 12:33
PROVIDERS: PCP Nurse Practitioner Family; Visit Provider Nurse Practitioner
DX: E04.1 Nontoxic single thyroid nodule
CPT/HCPCS: 76536; 84439; 84443

== ENCOUNTER 2023-05-16 08:34 | Outpatient (CLI) | payer MEDICARE, OTHER, SELFPAY ==
--- NOTE | 2023-05-16 08:35 | US_ITS ---
FINAL REPORT CLINICAL HISTORY: RIGHT AND LEFT THYROID FNA -- EL SHORT FINDINGS: Ultrasound guided thyroid biopsy. HISTORY: Bilateral thyroid nodules Attending radiologist: Dr. Hernandez Physician Engraver Wood: El Dalal PA-C PROCEDURE: After informed consent was obtained and a time-out was performed, the patient was prepped and draped in usual sterile fashion over the left in the right neck. Utilizing local anesthesia and sterile technique with a 25-gauge needle, access to right lesion was obtained. A total of 2 passes were made into the lesion in the right lobe of thyroid. Subsequently, access to the lesion in the left lobe of the thyroid was obtained under direct ultrasound guidance and a total of 4 passes were made under direct ultrasound guidance. The patient received no conscious sedation. The patient tolerated procedure well and left the department in good condition. IMPRESSION: Status post ultrasound guided biopsy of dominant nodules within the left lobe and right lobe of the thyroid without immediate complication. Films reviewed , interpreted and dictated by Dr. Hernandez. Transcribed by El Dalal PA-C. Reviewed, Interpreted and Dictated by Yvan Hernandez III, MD Transcribed by DEJA Francois Authenticated and [facility]
== END 2023-05-16 23:59 ==
LOC: RAD 08:35
PROVIDERS: PCP Nurse Practitioner Family; Visit Provider Nurse Practitioner
DX: E04.1 Nontoxic single thyroid nodule (principal)
CPT/HCPCS: 10005; 76536; 88173; 88305

== ENCOUNTER 2023-08-16 10:40 | Outpatient (POV) | payer MEDICARE, OTHER, SELFPAY | END 2023-08-16 23:59 | disposition home or self-care (01) | LOC: SC 10:41 | PROVIDERS: PCP Nurse Practitioner Family; Visit Provider Dermatology | DX: Z00.00 Encounter for general adult medical examination without abnormal findings (principal) ==

== ENCOUNTER 2023-09-16 13:48 | Outpatient (CLI) | payer MEDICARE, OTHER, SELFPAY ==
--- NOTE | 2023-09-16 13:49 | MM_ITS ---
PROCEDURE INFORMATION: Exam: MG Bilateral Screening 3D Mammography Exam date and time: 09/16/2023 1:46 PM Age: 73 years old Clinical indication: Screening examination TECHNIQUE: Imaging protocol: Bilateral Screening tomosynthesis and 2D mammography including computer-aided detection (CAD) when performed. COMPARISON: 1. MG MM DIG MAMM BI DX W/CAD 05/07/2022 2:06 PM 2. MG MM DIG MAMM BI DX W/CAD 10/01/2021 1:48 PM FINDINGS: MAMMOGRAPHY: Breast composition: There are scattered areas of fibroglandular density. Mass: Questionable 0.6 cm mass in the middle third of the left approximate 9 o'clock axis Architectural distortion: None. Calcifications: No suspicious calcifications. Asymmetric density: None. Skin thickening: None. Axillary adenopathy: None. IMPRESSION: Patient to be recalled for spot compression views of the left breast in the CC and MLO projections, a full 90 degree lateral view, and possible left breast ultrasound for further evaluation of a left breast mass. ASSESSMENT: BI-RADS Category 0: Incomplete- Need Additional Imaging Evaluation and/or Prior Mammograms for Comparison.
== END 2023-09-16 23:59 | disposition home or self-care (01) ==
LOC: RAD 13:49
PROVIDERS: PCP Nurse Practitioner Family; Visit Provider Nurse Practitioner Family
DX: Z12.31 Encounter for screening mammogram for malignant neoplasm of breast (principal); R92.8 Other abnormal and inconclusive findings on diagnostic imaging of breast
CPT/HCPCS: 77063; 77067

== ENCOUNTER 2023-09-27 13:45 | Outpatient (CLI) | payer MEDICARE, OTHER, SELFPAY ==
--- NOTE | 2023-09-27 13:45 | US_ITS ---
PROCEDURE INFORMATION: Exam: US Left Breast, Complete MG Left Diagnostic Breast Tomosynthesis Exam date and time: 09/27/2023 2:02 PM Age: 73 years old Clinical indication: Recall on the basis of screening mammogram 09/16/2023 for further evaluation of left breast mass at 9 o'clock. TECHNIQUE: Imaging protocol: Complete ultrasound of all four quadrants of the left breast and the retroareolar regions, including ultrasound of the axilla when performed. Left Diagnostic tomosynthesis and 2D mammography including computer-aided detection (CAD) when performed. Unilateral or bilateral exam. COMPARISON: US BREAST LT COMPLETE 11/12/2022 2:34 PM FINDINGS: MAMMOGRAPHY: Breast composition: There are scattered areas of fibroglandular density based on the most recent screening mammogram report. Breast mammogram findings: Persistent oval slightly lobulated 0.6 cm mass with a few related calcifications, middle 3rd approximately 9 o'clock. ULTRASOUND: Breast ultrasound findings: Left sonography, all 4 quadrants, retroareolar and axilla demonstrates at 9 o'clock 2 cm from the nipple, a slightly lobulated hypoechoic avascular mass measuring 0.4 x 0.8 x 0.4 cm, which may be the correlate for the mammographic mass - as there similar hypoechoic avascular masses, at 9 o'clock 3 cm from the nipple measuring 0.5 x 0.4 x 0.5 cm, at 4 o'clock 3 cm from the nipple measuring 0.3 x 0.3 x 0.3 cm, at 6 o'clock 2 cm from the nipple measuring 0.3 x 0.3 x 0.2 cm, and at 7 o'clock 3 cm from the nipple measuring 0.4 x 0.7 x 0.4 cm. Sonographically unremarkable axillary lymph node. IMPRESSION: See comments Patient will be recalled for left diagnostic magnification view in true lateral to assess if calcifications related to the mammographic mass layer in a benign microcyst pattern. If calcifications layer, then consider 6 month follow up mammography and sonography (as similar appearing more likely sonographic complicated cysts). If calcifications do not layer, then consider stereotactic biopsy. ASSESSMENT: BI-RADS Category 0: Incomplete: Need Additional Imaging Evaluation and/or Prior Mammograms for Comparison
== END 2023-09-27 23:59 | disposition home or self-care (01) ==
LOC: RAD 13:45
PROVIDERS: PCP Nurse Practitioner Family; Visit Provider Nurse Practitioner Family
DX: R92.8 Other abnormal and inconclusive findings on diagnostic imaging of breast (principal)
CPT/HCPCS: 76641; 77061; 77065; G0279

== ENCOUNTER 2023-10-11 18:00 | Outpatient (CLI) | payer MEDICARE, OTHER, SELFPAY ==
[2023-10-11 13:13] LABS: Basophils # 0.1 K/mm3 (0-0.2); Basophils % 1.1 % (0.1-2.0); Eosinophils # 0.1 K/mm3 (0.0-0.4); Eosinophils % 1.2 % (0.1-12.0); Hematocrit 43.6 % (37.0-47.0); Hemoglobin 14.6 g/dL (12.2-16.2); Lymphocytes # 1.7 K/mm3 (0.7-4.5); Lymphocytes % 24.5 % (10-50); Mean Corpuscular HGB Conc 33.6 g/dL (31.8-35.4); Mean Corpuscular Hemoglobin 30.1 pg (27.0-31.2); Mean Corpuscular Volume 89.5 fl (81-99); Mean Platelet Volume 8.2 fl (7.4-10.4); Monocytes # 0.4 K/mm3 (0.1-1.0); Monocytes % 5.6 % (1.7-9.3); Neutrophils # 4.8 K/mm3 (1.8-7.8); Neutrophils % 67.6 % (37.0-80.0); Platelet Count 313 K/mm3 (142-424); Red Blood Count 4.87 M/mm3 (4.20-5.40); Red Cell Distribution Width 13.7 % (11.5-17.5)
[2023-10-11 13:53] LABS: Alanine Aminotransferase 17 U/L (12-78); Albumin Level 4.5 g/dl (3.5-5.0); Albumin/Globulin Ratio 1.6 (1.1-1.8); Alkaline Phosphatase 70 U/L (38-126); Anion Gap 13.6 mEq/L (5-15); Aspartate Amino Transferase 33 U/L (14-36); Bilirubin,Total 0.4 mg/dl (0.2-1.3); Blood Urea Nitrogen 20 mg/dl (7-17); Calcium 10.2 mg/dl (8.4-10.2); Carbon Dioxide 32 mmol/L (22.0-30.0); Chloride 101 mmol/L (98-107); Chol/HDL Ratio 4.3 (1-3.5); Cholesterol 193 mg/dl (140-200); Estimated Glomerular Filt Rate 55 ml/min (>60); GFR (African American) 66 ML/MIN (>60); Globulin 2.9 g/dL (1.3-3.2); Glucose 86 mg/dl (74-100); HDL Cholesterol 45 mg/dl (40-60); Potassium 4.6 mmoL/L (3.5-5.1); Sodium 142 mmol/L (136-145); Total Protein,Serum 7.4 g/dl (6.3-8.2); Triglycerides 172 mg/dl (30-150); VLDL Cholesterol 34 mg/dL (0-40)
[2023-10-11 14:04] LABS: Direct LDL Cholesterol 110.47 mg/dL (100-129)
[2023-10-11 14:08] LABS: 25-OH Vitamin D, Total 67.2 ng/mL (30-100)
[2023-10-11 14:24] LABS: Thyroid Stimulating Hormone 1.52 uIU/mL (0.465-4.68)
== END 2023-10-11 23:59 | disposition home or self-care (01) ==
LOC: LAB.DROPOF 10-12 10:30
PROVIDERS: PCP Nurse Practitioner Family; Visit Provider Nurse Practitioner Family
DX: M85.80 Other specified disorders of bone density and structure, unspecified site (principal); E78.5 Hyperlipidemia, unspecified; Z13.220 Encounter for screening for lipoid disorders; E01.0 Iodine-deficiency related diffuse (endemic) goiter; Z68.23 Body mass index [BMI] 23.0-23.9, adult
CPT/HCPCS: 80053; 80061; 82306; 84443; 85025

== ENCOUNTER 2023-10-25 12:43 | Outpatient (CLI) | payer MEDICARE, OTHER, SELFPAY ==
--- NOTE | 2023-10-25 12:44 | MM_ITS ---
PROCEDURE INFORMATION: Exam: MG Left Diagnostic Breast Tomosynthesis Exam date and time: 10/25/2023 12:57 PM Age: 73 years old Clinical indication: Patient recalled on the basis of a screening mammogram for further evaluation; Left breast; Lt breast calcifications TECHNIQUE: Imaging protocol: Left Diagnostic tomosynthesis and 2D mammography including computer-aided detection (CAD) when performed. Unilateral or bilateral exam. COMPARISON: 1. MG MM DIG MAMM DX UNILAT LT CAD 09/27/2023 2:00 PM 2. MG MM DIG SCREENING MAMM BI W/CAD 09/16/2023 1:46 PM FINDINGS: MAMMOGRAPHY: Breast composition: There are scattered areas of fibroglandular density (based on the most recent screening mammogram report). Breast mammogram findings: Digital diagnostic magnification views of the left breast demonstrate calcifications that appear to layer in the dependent portion of an ovoid 0.9 cm mass. IMPRESSION: Benign layering calcifications. A six-month follow-up diagnostic left mammogram and left breast ultrasound are recommended to ensure stability of multiple masses seen on sonogram dated 09/27/2023 ASSESSMENT: BI-RADS Category 3: Probably benign.
== END 2023-10-25 23:59 | disposition home or self-care (01) ==
LOC: RAD 12:44
PROVIDERS: PCP Nurse Practitioner Family; Visit Provider Nurse Practitioner Family
DX: R92.8 Other abnormal and inconclusive findings on diagnostic imaging of breast (principal)
CPT/HCPCS: 77061; 77065; G0279

== ENCOUNTER 2023-11-28 13:31 | Outpatient (CLI) | payer MEDICARE, SELFPAY ==
--- NOTE | 2023-11-28 13:50 | US_ITS ---
FINAL REPORT CLINICAL HISTORY: follow up on thyroid nodule COMPARISON: 05/05/2023 FINDINGS: THYROID ULTRASOUND FINDINGS: SIZE: Normal ECHOGENICITY: Homogeneous LESIONS: There are numerous, predominantly TR 3 nodules in both thyroid lobes. The largest on the right measures up to 15 mm and is unchanged. The next largest nodule on the right measures 12 mm, also a TR 3 nodule, unchanged. The largest nodule on the left is an exophytic TR 3 mass measuring up to 26 mm. This has slightly increased previously measuring 22 mm. The second largest nodule in the left lobe measures 9 mm, unchanged, and is classified as a TR 4 nodule. OTHER: No additional findings. IMPRESSION: Multinodular goiter with measurements of the largest lesion provided above. The largest nodule in the left lobe has minimally increased although not sufficiently to warrant biopsy at this time. 12-month follow-up is recommended. Reviewed, Interpreted and Dictated by Sharla Mejias MD Transcribed by Gerri Scott Authenticated and [facility]
== END 2023-11-28 23:59 | disposition home or self-care (01) ==
LOC: RAD 13:33
PROVIDERS: PCP Nurse Practitioner Family; Visit Provider Nurse Practitioner
DX: E04.1 Nontoxic single thyroid nodule (principal)
CPT/HCPCS: 76536

== ENCOUNTER 2024-01-25 13:31 | Outpatient (CLI) | payer MEDICARE, OTHER, SELFPAY ==
[2024-01-25 16:25] LABS: Adenovirus,PCR Not Detected (NotDetected); Bordetella Pertussis Not Detected (NotDetected); Chlamydophila Pneumoniae, PCR Not Detected (NotDetected); Coronavirus 19, PCR Not Detected (NotDetected); Coronavirus 229E Not Detected (NotDetected); Coronavirus NL63 Not Detected (NotDetected); Coronavirus OC43 Not Detected (NotDetected); Coronovirus HKU1,PCR Not Detected (NotDetected); Human Metapneumovirus Not Detected (NotDetected); Influenza A, PCR Not Detected (NotDetected); Influenza AH1, 2009 Not Detected (NotDetected); Influenza AH1, PCR Not Detected (NotDetected); Influenza AH3,PCR Not Detected (NotDetected); Influenza B, PCR Not Detected (NotDetected); Mycoplasma Pneumoniae, PCR Not Detected (NotDetected); Parainfluenza 1, PCR Not Detected (NotDetected); Parainfluenza 2, PCR Not Detected (NotDetected); Parainfluenza 3, PCR Not Detected (NotDetected); Parainfluenza 4, PCR Not Detected (NotDetected); Respiratory Syncytial Virus Not Detected (NotDetected); Rhinovirus/Enterovirus Not Detected (NotDetected)
== END 2024-01-25 23:59 | disposition home or self-care (01) ==
LOC: LAB.DROPOF 01-26 11:03
PROVIDERS: PCP Internal Medicine; Visit Provider Internal Medicine
DX: R53.83 Other fatigue (principal); R06.02 Shortness of breath
CPT/HCPCS: 87265; 87486; 87581; 87632; 87635

== ENCOUNTER 2024-02-14 13:45 | Outpatient (POV) | payer MEDICARE, OTHER, SELFPAY | END 2024-02-14 23:59 | disposition home or self-care (01) | LOC: SC 02-15 06:39 | PROVIDERS: Visit Provider Dermatology | DX: Z00.00 Encounter for general adult medical examination without abnormal findings (principal) ==

== ENCOUNTER 2024-03-05 11:20 | Outpatient (CLI) | payer MEDICARE, OTHER, SELFPAY ==
--- NOTE | 2024-03-05 11:25 | XR_ITS ---
PROCEDURE INFORMATION: Exam: XR Abdomen Exam date and time: 03/05/2024 11:30 AM Age: 73 years old Clinical indication: Abdominal pain; Other: Right; Additional info: Rlq abd pain TECHNIQUE: Imaging protocol: Radiologic exam of the abdomen. Views: Frontal supine view of the abdomen. 1 View. COMPARISON: No relevant prior studies available. FINDINGS: Gastrointestinal tract: Constipation throughout the colon. Bones/joints: Levoscoliosis of the lumbar spine. Degenerative changes in the lumbar spine and both hips IMPRESSION: Constipation throughout the colon.
[2024-03-05 14:55] LABS: Basophils # 0.1 K/mm3 (0-0.2); Basophils % 0.9 % (0.1-2.0); Eosinophils # 0.1 K/mm3 (0.0-0.4); Eosinophils % 0.9 % (0.1-12.0); Hematocrit 43.8 % (37.0-47.0); Hemoglobin 14.8 g/dL (12.2-16.2); Lymphocytes # 1.6 K/mm3 (0.7-4.5); Lymphocytes % 24.4 % (10-50); Mean Corpuscular HGB Conc 33.7 g/dL (31.8-35.4); Mean Corpuscular Volume 88.9 fl (81-99); Mean Platelet Volume 7.7 fl (7.4-10.4); Monocytes # 0.4 K/mm3 (0.1-1.0); Monocytes % 5.9 % (1.7-9.3); Neutrophils # 4.6 K/mm3 (1.8-7.8); Neutrophils % 67.9 % (37.0-80.0); Platelet Count 339 K/mm3 (142-424); Red Blood Count 4.93 M/mm3 (4.20-5.40); Red Cell Distribution Width 13.6 % (11.5-17.5); White Blood Count 6.7 K/mm3 (4.8-10.8)
[2024-03-05 15:07] LABS: Albumin Level 4.7 g/dl (3.5-5.0); Chloride 100 mmol/L (98-107); Potassium 4.3 mmoL/L (3.5-5.1); Sodium 140 mmol/L (136-145)
[2024-03-05 15:09] LABS: Blood Urea Nitrogen 13 mg/dl (7-17); Estimated Glomerular Filt Rate 71 ml/min (>60); GFR (African American) 86 ML/MIN (>60)
[2024-03-05 15:10] LABS: Alanine Aminotransferase 16 U/L (12-78); Albumin/Globulin Ratio 1.6 (1.1-1.8); Alkaline Phosphatase 78 U/L (38-126); Anion Gap 15.3 mEq/L (5-15); Aspartate Amino Transferase 34 U/L (14-36); Bilirubin,Total 0.5 mg/dl (0.2-1.3); Calcium 9.2 mg/dl (8.4-10.2); Carbon Dioxide 29 mmol/L (22.0-30.0); Glucose 71 mg/dl (74-100); Iron 101 ug/dL (37-170); Total Protein,Serum 7.7 g/dl (6.3-8.2)
== END 2024-03-05 23:59 | disposition home or self-care (01) ==
LOC: RAD 11:22
PROVIDERS: PCP Nurse Practitioner Family; Visit Provider Nurse Practitioner Family
DX: R10.31 Right lower quadrant pain (principal); D64.9 Anemia, unspecified; Z77.011 Contact with and (suspected) exposure to lead; E83.52 Hypercalcemia; M85.80 Other specified disorders of bone density and structure, unspecified site
CPT/HCPCS: 74018; 80053; 82306; 83540; 83655; 83735; 85025

== ENCOUNTER 2024-03-20 12:35 | Outpatient (CLI) | payer MEDICARE, OTHER, SELFPAY ==
--- NOTE | 2024-03-20 12:36 | CT_ITS ---
FINAL REPORT TECHNIQUE: Axial CT images of the abdomen and pelvis were obtained before and after the administration of IV contrast. This study was performed with techniques to keep radiation doses as low as reasonably achievable (ALARA). Individualized dose reduction techniques using automated exposure control or adjustment of mA and/or kV according to the patient's size were employed. CLINICAL HISTORY: RLQ ABD PAIN COMPARISON: None FINDINGS: Abdomen: Mild bibasilar atelectasis is present. The heart is normal in size. Small hepatic cysts are noted in the liver without other hepatic abnormality seen. Levoscoliosis is present along with severe degenerative change in the lumbar spine. The spleen is unremarkable. No adrenal masses present. The pancreas has an unremarkable appearance. Bilateral renal scarring is noted along with moderate right renal atrophy. There is a 4 mm stone present in the mid left kidney, as well as several other bilateral nonobstructive less than 3 mm in size stones. The aorta is normal in caliber. There is no free fluid or adenopathy. No mass or abnormal fluid collection is seen. Pelvis: The appendix is is normal in appearance. The urinary bladder is unremarkable. No inflammatory process is seen. There is no evidence of mass or adenopathy. There is no evidence of bowel obstruction. Diverticulosis of the sigmoid colon is noted, without evidence of acute inflammatory change. IMPRESSION: No evidence of acute intra-abdominal process. Bilateral renal scarring and moderate right renal atrophy with small stones, nonobstructing, as described above. Moderate to large stool burden. Reviewed, Interpreted and Dictated by Yvan Hernandez III, MD Transcribed by Shara Guy Authenticated and [facility]
[2024-03-20] MEDS: SODIUM CHLORIDE 0.9% 10ML SYR (RAD ONLY) 10 ML IV (13:33)
[2024-03-20] MEDS: IOPAMIDOL-370 (76%);100ML BOTTLE 75 ML IV (13:33)
== END 2024-03-20 23:59 | disposition home or self-care (01) ==
LOC: RAD 12:36
PROVIDERS: PCP Nurse Practitioner Family; Visit Provider Nurse Practitioner Family
DX: R10.31 Right lower quadrant pain (principal)
CPT/HCPCS: 74178; Q9967

== ENCOUNTER 2024-03-29 13:26 | Outpatient (CLI) | payer MEDICARE, OTHER, SELFPAY ==
[2024-03-29 15:08] VITALS: BMI 22.1
== END 2024-03-29 23:59 | disposition home or self-care (01) ==
LOC: DIETICIAN 13:27
PROVIDERS: PCP Nurse Practitioner Family; Visit Provider Nurse Practitioner Family
DX: D64.9 Anemia, unspecified (principal); M85.80 Other specified disorders of bone density and structure, unspecified site
CPT/HCPCS: 97802

== ENCOUNTER 2024-06-05 12:42 | Outpatient (CLI) | payer MEDICARE, OTHER, SELFPAY ==
--- NOTE | 2024-06-05 12:43 | US_ITS ---
FINAL REPORT CLINICAL HISTORY: thyroid nodules COMPARISON: 11/28/2023 FINDINGS: Limited sonographic images of the thyroid were obtained. The right lobe of the thyroid measures 4.2 x 1.7 x 1.5 cm. The left lobe of the thyroid measures 4.8 x 1.8 x 1.4 cm. There is a dominant nodule in the right lobe measuring 1.6 x 1.2 cm, was 1.5 x 1.2 cm consistent with TR 3. Nodule is stable as compared to previous. There is a nodule in the superior pole of the left thyroid lobe measuring 7 mm in greatest dimension, similar to previous. Dominant nodule in the lower pole of the left thyroid measures 1.5 cm in greatest dimension. The central cystic focus is less well-seen. IMPRESSION: Multinodular goiter, stable or slightly smaller than previous. Recommend follow-up in 1 year. Reviewed, Interpreted and Dictated by Curtis Iglesias MD Transcribed by Amy Rutledge Authenticated and [facility]
== END 2024-06-05 23:59 | disposition home or self-care (01) ==
LOC: RAD 12:43
PROVIDERS: PCP Nurse Practitioner Family; Visit Provider Nurse Practitioner
DX: E01.0 Iodine-deficiency related diffuse (endemic) goiter (principal)
CPT/HCPCS: 76536

== ENCOUNTER 2024-10-16 12:17 | Outpatient (CLI) | payer MEDICARE, OTHER, SELFPAY ==
[2024-10-16 14:15] LABS: Basophils # 0.1 K/mm3 (0-0.2); Basophils % 1.2 % (0.1-2.0); Eosinophils # 0.1 Kmm3 (0.0-0.4); Eosinophils % 1.1 % (0.1-12.0); Hematocrit 44.9 % (37.0-47.0); Hemoglobin 14.5 g/dL (12.2-16.2); Immature Granulocytes # 0.01 10^3uL; Immature Granulocytes % 0.2 %; Lymphocytes # 1.4 K/mm3 (0.7-4.5); Lymphocytes % 24.8 % (10-50); Mean Corpuscular HGB Conc 32.3 g/dL (31.8-35.4); Mean Corpuscular Hemoglobin 28.7 pg (27.0-31.2); Mean Corpuscular Volume 88.9 fl (81-99); Mean Platelet Volume 10.1 fl (7.4-10.4); Monocytes # 0.4 K/mm3 (0.1-1.0); Monocytes % 6.4 % (1.7-9.3); Neutrophils # 3.7 K/mm3 (1.8-7.8); Neutrophils % 66.3 % (37.0-80.0); Nucleated Red Blood Cells # 0 10^3/uL; Nucleated Red Blood Cells % 0 %; Platelet Count 260 K/mm3 (142-424); Red Blood Count 5.05 M/mm3 (4.20-5.40); Red Cell Distribution Width 12.6 % (11.5-17.5); Red Cell Distribution Width-SD 40.6 fL; White Blood Count 5.6 K/mm3 (4.8-10.8)
[2024-10-16 14:35] LABS: Albumin Level 4.6 g/dl (3.5-5.0); Chloride 105 mmol/L (98-107); Sodium 141 mmol/L (136-145)
[2024-10-16 14:36] LABS: Potassium 4.8 mmoL/L (3.5-5.1)
[2024-10-16 14:38] LABS: Alanine Aminotransferase 14 U/L (12-78); Albumin/Globulin Ratio 1.8 (1.1-1.8); Alkaline Phosphatase 68 U/L (38-126); Anion Gap 10.8 mEq/L (5-15); Aspartate Amino Transferase 28 U/L (14-36); Bilirubin,Total 0.3 mg/dl (0.2-1.3); Blood Urea Nitrogen 18 mg/dl (7-17); Carbon Dioxide 30 mmol/L (22.0-30.0); Cholesterol 189 mg/dl (140-200); Estimated Glomerular Filt Rate 71 ml/min (>60); GFR (African American) 85 ML/MIN (>60); Globulin 2.5 g/dL (1.3-3.2); Total Protein,Serum 7.1 g/dl (6.3-8.2); Triglycerides 117 mg/dl (30-150); VLDL Cholesterol 23 mg/dL (0-40)
[2024-10-16 14:39] LABS: Calcium 9.5 mg/dl (8.4-10.2); Chol/HDL Ratio 3.9 (1-3.5); Glucose 88 mg/dl (74-100); HDL Cholesterol 49 mg/dl (40-60)
[2024-10-16 14:50] LABS: Direct LDL Cholesterol 105.48 mg/dL (100-129)
== END 2024-10-16 23:59 | disposition home or self-care (01) ==
LOC: LAB.DROPOF 10-17 11:30
PROVIDERS: PCP Nurse Practitioner Family; Visit Provider Nurse Practitioner Family
DX: M85.80 Other specified disorders of bone density and structure, unspecified site (principal); D64.9 Anemia, unspecified; E78.5 Hyperlipidemia, unspecified
CPT/HCPCS: 80053; 80061; 82306; 82728; 85025

== ENCOUNTER 2024-11-20 09:16 | Outpatient (CLI) | payer MEDICARE, OTHER, SELFPAY ==
--- NOTE | 2024-11-20 09:30 | XR_ITS ---
FINAL REPORT CLINICAL HISTORY: Osteopenia COMPARISON: 10/26/2022 FINDINGS: Using L1-4, the bone mineral density of the spine is 0.998 g/cm2, corresponding to T-score of -0.4, within normal limits but likely falsely elevated secondary to hypertrophic changes. Previously was 0.985 with a T-score of -0.6. Using the left hip, the bone mineral density of the femoral neck is 0.590 g/cm2, corresponding to a T-score of -2.3, compatible with osteopenia. Previously was 0.605 with a T-score of -2.2. Using the right hip, the bone mineral density of the femoral neck is 0.622 g/cm2, corresponding to a T-score of -2.0, compatible with osteopenia. Previously was 0.668 with a T-score of -1.6. FRAX 10 year fracture risk is 3.3% for a hip fracture and 13% for a major osteoporotic fracture. NOTE: T-score: Standard deviation compared with peak bone mass of young adult mean. *Following the recommendations of the International Society of Bone densitometry, classification of hip BMD is based on the lower of two T-scores; total hip or femoral neck. IMPRESSION: Diminished bone mineral density consistent with osteopenia. Reviewed, Interpreted and Dictated by Sharla Mejias MD Transcribed by Adela Ruffin Authenticated and [facility]
--- NOTE | 2024-11-20 10:00 | MM_ITS ---
PROCEDURE INFORMATION: Exam: MG Bilateral Screening 3D Mammography Exam date and time: 11/20/2024 9:37 AM Age: 74 years old Clinical indication: Screening examination. TECHNIQUE: Imaging protocol: Bilateral Screening tomosynthesis and 2D mammography including computer-aided detection (CAD) when performed. COMPARISON: 1. MG MM DIG MAMM DX UNILAT LT CAD 10/25/2023 12:57 PM 2. MG MM DIG MAMM DX UNILAT LT CAD 09/27/2023 2:00 PM FINDINGS: MAMMOGRAPHY: Breast composition: There are scattered areas of fibroglandular density. Mass: None. Architectural distortion: None. Calcifications: No suspicious calcifications. Asymmetric density: None. Skin thickening: None. Axillary adenopathy: None. IMPRESSION: No mammographic evidence of malignancy. Annual screening is recommended unless otherwise clinically indicated. ASSESSMENT: BI-RADS Category 1: Negative.
--- NOTE | 2024-11-20 11:00 | CA_ITS ---
FINAL REPORT CLINICAL HISTORY: screen for carolann, dizzy FINDINGS: RIGHT CAROTID: CCA PSV -87 cm/sec ICA PSV -79 cm/sec ICA/CCA PSV ratio -0.91. Comments: Mild plaque disease is noted. LEFTCAROTID: CCA PSV -84. cm/sec ICA PSV -100. cm/sec ICA/CCA PSV ratio -1.4. Comments: Mild plaque disease is noted. Antegrade flow is seen within the vertebral arteries. IMPRESSION: Carotid stenosis classified less than 50% Reviewed, Interpreted and Dictated by Sharla Mejias MD Transcribed by Amy Rutledge Authenticated and [facility]
== END 2024-11-20 23:59 | disposition home or self-care (01) ==
LOC: RAD 09:17
PROVIDERS: PCP Nurse Practitioner Family; Visit Provider Nurse Practitioner Family
DX: Z12.31 Encounter for screening mammogram for malignant neoplasm of breast (principal); I65.23 Occlusion and stenosis of bilateral carotid arteries; R92.323 Mammographic fibroglandular density, bilateral breasts; M85.80 Other specified disorders of bone density and structure, unspecified site; Z78.0 Asymptomatic menopausal state
CPT/HCPCS: 77063; 77067; 77080; 93880

== ENCOUNTER 2024-12-13 10:38 | Outpatient (CLI) | payer MEDICARE, OTHER, SELFPAY ==
--- NOTE | 2024-12-13 11:00 | US_ITS ---
FINAL REPORT TECHNIQUE: Sonographic images of the thyroid were obtained. CLINICAL HISTORY: nodule f/u COMPARISON: 06/05/2024 FINDINGS: THYROID ULTRASOUND The right thyroid gland measures 3.9 x 2.1 x 1.8 cm. The left thyroid gland measures 3.1 x 1.2 x 1.3 cm. The parenchyma is heterogeneous and multiple nodules are present. The dominant nodule in the right lobe of the thyroid measures 1.5 x 1.1 cm. It is hyperechoic to isoechoic, TI-RADS 3, similar to previous exam. There is a second nodule in the lower pole of the right lobe of the thyroid that measures 1.2 x 0.8 cm, also a TI-RADS 3. There is a 2.5 cm ovoid nodule in the lower pole of the left lobe of the thyroid. This may represent 2 contiguous nodules and is difficult to separate. This is hypoechoic, solid, TI-RADS 4. IMPRESSION: Hypoechoic, solid TI-RADS 4 nodule, lower pole of the left lobe of the thyroid. Recommend biopsy. Reviewed, Interpreted and Dictated by Curtis Iglesias MD Transcribed by Mary Jones Authenticated and [facility]
== END 2024-12-13 23:59 | disposition home or self-care (01) ==
LOC: RAD 10:38
PROVIDERS: PCP Nurse Practitioner Family; Visit Provider Nurse Practitioner
DX: E04.2 Nontoxic multinodular goiter (principal)
CPT/HCPCS: 76536

== ENCOUNTER 2024-12-17 10:54 | Outpatient (CLI) | payer MEDICARE, OTHER, SELFPAY ==
[2024-12-17 12:23] LABS: Free T4 (Free Thyroxine) 0.98 ng/dl (0.78-2.19)
[2024-12-17 12:38] LABS: Thyroid Stimulating Hormone 2.37 uIU/mL (0.465-4.68)
== END 2024-12-17 23:59 | disposition home or self-care (01) ==
LOC: LAB 10:55
PROVIDERS: PCP Nurse Practitioner Family; Visit Provider Nurse Practitioner
DX: E04.2 Nontoxic multinodular goiter (principal)
CPT/HCPCS: 36415; 84439; 84443

== ENCOUNTER 2024-12-26 08:33 | Outpatient (CLI) | payer MEDICARE, OTHER, SELFPAY ==
--- NOTE | 2024-12-26 09:00 | US_ITS ---
FINAL REPORT CLINICAL HISTORY: .RAYNA SHORT -- LT NODULE FINDINGS: ULTRASOUND GUIDED THYROID BIOPSY HISTORY: Left thyroid nodule. TECHNIQUE:Informed consent was obtained from the patient. Timeout procedure was performed prior to beginning. Limited sonographic evaluation of thyroid gland was performed to localize lesion of interest. The neck was prepped in a routine sterile fashion and locally anesthetized with 1% lidocaine. FNA was performed with 25-gauge needle under direct sonographic visualization. 4 passes were made. Cytology is pending. Procedure was well tolerated. CONCLUSION: 1. Technically successful thyroid fine needle aspiration of an inferior left thyroid nodule. Reviewed, Interpreted and Dictated by Curtis Iglesias MD Transcribed by Hilaria Ramey PA-C Authenticated and [facility]
== END 2024-12-26 23:59 | disposition home or self-care (01) ==
LOC: RAD 08:34
PROVIDERS: PCP Nurse Practitioner Family; Visit Provider Nurse Practitioner
DX: E04.1 Nontoxic single thyroid nodule (principal)
CPT/HCPCS: 10005

== ENCOUNTER 2025-01-15 09:17 | Outpatient (CLI) | payer MEDICARE, OTHER, SELFPAY ==
--- NOTE | 2025-01-15 10:00 | US_ITS ---
FINAL REPORT CLINICAL HISTORY: LT THYROID NODULE -- LT THYROID FNA -- REPEAT FNA -- PATHOLOGIST PRESENT -- BISMARK SHORT FINDINGS: Ultrasound guided thyroid biopsy. HISTORY: Thyroid mass. PROCEDURE: After informed consent was obtained and a time-out was performed, the patient was prepped and draped in usual sterile fashion over the anterior neck. Utilizing local anesthesia and sterile technique with a 25-gauge needle, access to the lesion was obtained. Four passes were made. Preliminary report of pathology was debris but no definite follicular cells despite ultrasound proven needle in good position. Samples were sent for genetic testing.. The patient received no conscious sedation. The patient tolerated procedure well and left the department in good condition. IMPRESSION: Status post ultrasound guided biopsy of a thyroid nodule without immediate complication. Reviewed, Interpreted and Dictated by Danni Ramírez MD Transcribed by DEJA Estrada Authenticated and [facility]
== END 2025-01-15 23:59 | disposition home or self-care (01) ==
LOC: RAD 09:18
PROVIDERS: PCP Nurse Practitioner Family; Visit Provider Nurse Practitioner
DX: E04.1 Nontoxic single thyroid nodule (principal)
CPT/HCPCS: 10005

== ENCOUNTER 2025-04-10 08:23 | Outpatient (CLI) | payer MEDICARE, OTHER, SELFPAY ==
[2025-04-10 16:44] LABS: Coronavirus 19, PCR Not Detected (NotDetected); Influenza A, PCR Not Detected (NotDetected); Influenza B, PCR Not Detected (NotDetected)
== END 2025-04-10 23:59 ==
LOC: LAB.DROPOF 04-12 08:25
PROVIDERS: PCP Nurse Practitioner Family; Visit Provider Internal Medicine
DX: J06.9 Acute upper respiratory infection, unspecified (principal)
CPT/HCPCS: 87631